=== PATIENT | male | born 1970 | race Two or more races ===

== ENCOUNTER 2019-01-21 12:56 | Emergency (ER) | payer OTHER ==
--- NOTE | 2019-01-21 13:41 | EDPHY ---
H & P Time Seen by Provider: 01/21/19 13:09 HPI/ROS: Shortly prior to arrival this patient sustained a laceration to his right 2nd finger distal phalanx palmar aspect while trying to cut drywall that was propped up in the bed of his pickup truck when the bed tailgate flopped down causing sudden motion of the knife in laceration to his finger. He reports moderate pain and moderate bleeding that slowed with direct pressure. He denies any other associated symptoms. He came in by private vehicle for evaluation. ROS: Neuro: He denies any numbness or tingling the affected digit Musculoskeletal: He denies any bony pain the affected digit 5 point review of symptoms is performed and otherwise negative with exception of pertinent positives and negatives listed in HPI and ROS Smoking Status: Former smoker Physical Exam: Physical Exam Vital signs are normal. General: No acute distress Cardiac: Brisk capillary refill is intact throughout. Pulses are 2+ and symmetric in the affected extremity. Skin: No rash or pallor. Extremities: Atraumatic normal except for right 2nd finger that exam is notable for a 2.3 cm full-thickness laceration to the 2nd finger palmar aspect distal phalanx with mild active bleeding. Neuro: Alert and oriented x3 with no sensorimotor deficits to the affected digit. He maintains 2 point discrimination. Constitutional: Initial Vital Signs Temperature (C) 37.1 C 01/21/19 13:06 Heart Rate 74 01/21/19 13:06 Respiratory Rate 16 01/21/19 13:06 Blood Pressure 137/84 H 01/21/19 13:06 O2 Sat (%) 96 01/21/19 13:06 O2 Delivery Mode Room Air Allergies/Adverse Reactions: No Known Allergies Allergy (Unverified 01/21/19 13:34) Home Medications: Medication Instructions Recorded NK [No Known Home Meds] 01/21/19 MDM/Departure - MDM Procedures: Digital block: After verbal consent, using a 50 50 mix of 0.5% Marcaine 2% plain lidocaine, 27 gauge needle, chlorhexidine scrub under sterile conditions- 3 injections were administered to the base of the affected finger, 8 mL with good effect. Patient tolerated this well. There were no complications. The wound is 2.3 cm The wound was copiously irrigated with saline. The wound was explored for foreign bodies and none were found. The wound was prepped and draped in the normal sterile fashion. The edges were reapproximated using 4 0 Prolene -3 running sutures and 5 interrupted sutures with good hemostasis and cosmesis. The patient tolerated the procedure well. There were no complications. Patient was then placed in tube gauze dressing by our tech we counseled regarding wound care and follow-up plan - Depart Disposition: Home, Routine, Self-Care Clinical Impression: Finger laceration Qualifiers: Encounter type: initial encounter Finger: index finger Damage to nail status: without damage Foreign body presence: without foreign body Laterality: right Qualified Code(s): S61.210A - Laceration without foreign body of right index finger without damage to nail, initial encounter Condition: Good Instructions: Finger Laceration (ED) Additional Instructions: Diagnosis: Finger laceration Plan: Keep the wound clean and dry for the next 2 days then clean daily with warm soapy water and return for suture removal in 10-12 days No use of the injured finger for the next 2 days then limited use thereafter for the next 7-10 days. Return sooner if he develops redness, discharge or other concerns for infection Ibuprofen and/or Tylenol for pain as needed. Stand Alone Forms: Work Excuse, Work Limited Duty
[2019-01-21 14:47] VITALS: BP 132/80
== END 2019-01-21 14:49 | disposition home or self-care (01) ==
LOC: CED 12:56
PROC: 0HQFXZZ Repair Right Hand Skin, External Approach (ICD-10-PCS; principal; 2019-01-21)
DX: S61.210A Laceration without foreign body of right index finger without damage to nail, initial encounter (principal); W26.0XXA Contact with knife, initial encounter; Y93.89 Activity, other specified; Y92.812 Truck as the place of occurrence of the external cause
CPT/HCPCS: 99282-ER